=== PATIENT | male | born 2000 | race Caucasian/White ===

== ENCOUNTER 2022-02-27 09:01 | Outpatient (RCR) | payer MEDICAID | END 2022-03-24 | disposition home or self-care (01) | LOC: OT | DX: G56.03 Carpal tunnel syndrome, bilateral upper limbs (principal) ==

== ENCOUNTER 2022-03-06 11:00 | Outpatient (RCR) | payer MEDICAID | END 2022-03-24 | disposition home or self-care (01) | LOC: PT | DX: S82.51XD Displaced fracture of medial malleolus of right tibia, subsequent encounter for closed fracture with routine healing (principal); X58.XXXD Exposure to other specified factors, subsequent encounter ==

== ENCOUNTER 2022-03-26 07:48 | Outpatient (RCR) | payer MEDICAID | END 2022-04-24 | disposition home or self-care (01) | LOC: PT | DX: S82.51XD Displaced fracture of medial malleolus of right tibia, subsequent encounter for closed fracture with routine healing (principal); X58.XXXD Exposure to other specified factors, subsequent encounter ==

== ENCOUNTER 2022-03-26 07:59 | Outpatient (RCR) | payer MEDICAID | END 2022-04-23 15:36 | disposition home or self-care (01) | LOC: OT 07:59 | DX: G56.03 Carpal tunnel syndrome, bilateral upper limbs (principal) ==

== ENCOUNTER 2022-04-26 08:22 | Outpatient (RCR) | payer MEDICAID | END 2022-05-24 | disposition still patient (30) | LOC: PT | DX: S82.51XD Displaced fracture of medial malleolus of right tibia, subsequent encounter for closed fracture with routine healing (principal); X58.XXXD Exposure to other specified factors, subsequent encounter ==